=== PATIENT | female | born 1995 | race Two or more races ===

== ENCOUNTER 2019-04-20 05:34 | Inpatient (IN) | payer OTHER ==
[~2019-04-20] VITALS: Ht 154.9 cm; Wt 91.8 kg
[2019-04-23 07:53] VITALS: BP 96/55
== END 2019-04-23 12:55 | disposition home or self-care (01) | DRG 788 ==
LOC: LDIP 05:34 → 2NW 10:31
PROVIDERS: ADMIT Obstetrics & Gynecology; ATTEND Obstetrics & Gynecology
PROC: 10D00Z1 Extraction of Products of Conception, Low, Open Approach (ICD-10-PCS; principal; 2019-04-20)
DX: O34.211 Maternal care for low transverse scar from previous cesarean delivery (principal); O69.81X0 Labor and delivery complicated by cord around neck, without compression, not applicable or unspecified; Z37.0 Single live birth; Z3A.39 39 weeks gestation of pregnancy
CPT/HCPCS: 36415; 85025; 86850; 86900; 88305; G0378; J0690; J1100; J1885; J2274; J2405; J3010; J1200; J2590; J2765; J7120